=== PATIENT | male | born 1955 | race Caucasian/White ===

== ENCOUNTER 2020-03-11 20:25 | Emergency (ER) | payer MEDICAID ==
[2020-03-11] MEDS ORDERED: ONDANSETRON HCL INJ/PF 4 MG/2 ML SDV IV ONE (22:04)
[2020-03-11] MEDS ORDERED: GLUCAGON,HUMAN RECOMB 1 MG INJ IV ONE (22:04)
[2020-03-11 22:40] LABS: ABSOLUTE LYMPHOCYTES (AUTO) 1.8 10^3/uL (0.5-4.7); ABSOLUTE MONOCYTES (AUTO) 1.3 10^3/uL (0.1-1.4); ABSOLUTE NEUT (AUTO) 10.2 10^3/uL (1.7-8.2); EOSINOPHILS % (AUTO) 0.1 % (0-6); HEMATOCRIT 41.9 % (37.9-51.0); HEMOGLOBIN 14.3 g/dL (13.5-17.0); LYMPHOCYTES % (AUTO) 13.3 % (13-45); MEAN CORPUSCULAR HEMOGLOBIN 29.7 pg (27.0-33.4); MEAN CORPUSCULAR HGB CONC 34.1 g/dL (32.0-36.0); MEAN CORPUSCULAR VOLUME 87 fl (80-97); MONOCYTES % (AUTO) 10.1 % (3-13); PLATELET COUNT 222 10^3/uL (150-450); RED BLOOD COUNT 4.81 10^6/uL (4.35-5.55); RED CELL DISTRIBUTION WIDTH 14.2 % (11.5-14.0); SEGMENTED NEUTROPHILS % (AUTO) 76.5 % (42-78); TOTAL CELLS COUNTED % (AUTO) 100 %; WHITE BLOOD COUNT 13.3 10^3/uL (4.0-10.5)
--- NOTE | 2020-03-11 22:51 | ER Document Report ---
ED General - General Chief Complaint: Other Stated Complaint: DIFFICULTY SWALLOW Time Seen by Provider: 03/11/20 21:06 TRAVEL OUTSIDE OF THE [place] IN LAST 30 DAYS: No - HPI Notes: 64-year-old male no significant medical history presents with feeling of steak stuck in his throat after eating dinner tonight. Patient feels pain where he feels food bolus. Has vomited every time he is attempted to take p.o. since dinner. No drooling, no shortness of breath, no cough, no other medical history - Related Data Allergies/Adverse Reactions: peanut [Peanut] Allergy (Verified 02/16/15 15:23) Past Medical History - General Information source: Patient - Social History Smoking Status: Never Smoker Frequency of alcohol use: None Drug Abuse: None Patient has homicidal ideation: No Review of Systems - Review of Systems Notes: REVIEW OF SYSTEMS: CONSTITUTIONAL : Denies fever, chills, or sweats. EENT: Denies recent cold/sinus symptoms, +throat pain CARDIOVASCULAR: Denies chest pain, ANA RESPIRATORY: Denies cough, denies shortness of breath. GASTROINTESTINAL: Denies abdominal pain, nausea/vomiting. GENITOURINARY: Denies difficulty urinating, painful urination. MUSCULOSKELETAL: Denies neck pain, back pain. SKIN: Denies rash or skin lesions. HEMATOLOGIC : Denies easy bruising or bleeding. LYMPHATIC: Denies swollen, enlarged glands. NEUROLOGICAL: Denies headache, denies change in gait. PSYCHIATRIC: Denies anxiety or stress or depression. Physical Exam - Vital signs Vitals: Temp Pulse Resp BP Pulse Ox 98.7 F 100 17 157/96 H 100 03/11/20 20:30 03/11/20 20:30 03/11/20 20:30 03/11/20 20:30 03/11/20 20:30 - Notes Notes: PHYSICAL EXAMINATION: GENERAL: Well-appearing, well-nourished, uncomfortable appearing middle-aged man walking around ED evaluation room with emesis bag in no acute distress. HEAD: Atraumatic, normocephalic. EYES: Pupils equal round and appropriate constriction, sclera anicteric, conjunctiva are normal. ENT: nares patent, moist mucous membranes. NECK: Normal range of motion, supple without lymphadenopathy LUNGS: Breath sounds clear to auscultation bilaterally and equal. No wheezes rales or rhonchi. HEART: Regular rate and rhythm without murmurs ABDOMEN: Soft, nontender, no guarding, no masses, no CVAT EXTREMITIES: Normal range of motion, no pitting or edema. No cyanosis. NEUROLOGICAL: Awake, alert, conversing appropriately, moves all extremities spontaneously. PSYCH: Normal mood, normal affect. SKIN: Warm, Dry, normal turgor, no rashes or lesions noted. Course - Re-evaluation Re-evalutation: 03/11/20 22:50 Presentation consistent with acute esophageal impaction. No signs of airway involvement or impending airway obstruction. Patient otherwise well-appearing. Patient completely unable to tolerate p.o. with numerous episodes of emesis since impaction shortly before ED arrival. Will attempt carbonated drink and axial loading force to mobilize bolus, will obtain basic labs and administer glucagon if ineffective, will consult surgery if unable to resolve in ED. Patient otherwise stable pending further treatment. 03/11/20 23:27 No success in relieving esophageal bolus in ED. Consulted Dr. Adams who plans to perform endoscopy in ED, says patient can be admitted to his service in the meantime. Patient remains stable without any significant change in clinical status. 03/11/20 23:30 Ordered labs in order to facilitate patient possibly having surgical procedure. Mild leukocytosis consistent with acute stress response to patient's current symptoms, no signs of infection, no need for further ED investigation of this finding. Patient has mild hypertension in ED likely secondary to acute discomfort, informed patient of this incidental finding and instructed him to follow it up with primary doctor. 03/12/20 02:23 Food bolus was removed by surgeon in ED successfully without complication. Patient currently without any symptoms of moderate sedation, says he feels back to his baseline, does not have any pain, able to tolerate p.o. in ED without vomiting after procedure, patient ready for discharge. Patient informed of incidental findings of borderline hypertension and mild LFT abnormalities and instructed to follow these up with his primary care doctor. Patient given return precautions which she demonstrated understanding of. - Vital Signs Vital signs: Temp Pulse Resp BP Pulse Ox 97.8 F 85 29 H 132/90 H 98 03/12/20 00:30 03/12/20 01:40 03/12/20 02:05 03/12/20 02:04 03/12/20 02:04 - Laboratory Result Diagrams: 03/11/20 22:19 03/11/20 23:03 Laboratory results interpreted by me: 03/11/20 03/11/20 22:19 23:03 WBC 13.3 H RDW 14.2 H Absolute Neuts (auto) 10.2 H Potassium 3.4 L AST 63 H ALT 175 H Discharge - Discharge Clinical Impression: Esophageal obstruction due to food impaction Condition: Good Disposition: HOME, SELF-CARE Additional Instructions: Esophageal Food Impaction Meat and poorly chewed food may stick in the lower esophagus, blocking it. We can relax the esophagus with medication, allowing the food to move into the stomach. Sometimes "carbonating" the water in the esophagus lifts food particles out of the obstruction and pushes the remaining food down. If these methods don't work, a tube is put down the esophagus to clear the blockage. Food "sticking" is called dysphagia. It's caused by a narrowing in the esophagus. Most commonly, it's due to chronic effects of esophagitis (an inflammation of the lower esophagus due to stomach acid, causing symptoms such as chest pain or heartburn). A hiatal hernia is often present. If the dysphagia has just begun, further testing to evaluate the cause of the obstruction will be necessary. If this is a recurrent problem, a procedure to dilate the esophagus may be necessary. Most commonly, the problem will resolve once swelling in the esophagus stops. Usual treatment is antacids or acid-suppressing medication. Membrane- coating medicine (such as Carafate), or medicine to keep acid out of the esophagus (such as Reglan) may be helpful for some patients. Call the doctor or return for re-evaluation if you develop chest pain, fever, shortness of breath, or inability to swallow fluids. Return to ED immediately if you develop weakness, dizziness, fainting, chest pain, fever, constipation or uncontrolled vomiting, or any other worsening or alarming symptoms. Follow-up with your primary doctor within 1 week and discuss your blood pressure and abnormal liver function tests with her or him.
[2020-03-11] MEDS ORDERED: NORMAL SALINE 1000 ML 1,000 ML IV ONE (22:52)
[2020-03-11 23:26] LABS: INTERNATIONAL RATION (INR) 1.02; PROTHROMBIN TIME 13.4 SEC (11.4-15.4)
[2020-03-11 23:27] LABS: PARTIAL THROMBOPLASTIN TIME 24.8 SEC (23.5-35.8)
[2020-03-11 23:40] LABS: ALBUMIN 3.8 g/dL (3.5-5.0); ALKALINE PHOSPHATASE 63 U/L (38-126); ANION GAP 5 (5-19); ASPARTATE AMINO TRANSFERASE 63 U/L (17-59); BILIRUBIN,TOTAL 0.4 mg/dL (0.2-1.3); BLOOD UREA NITROGEN 12 mg/dL (7-20); CALCIUM 9.3 mg/dL (8.4-10.2); CARBON DIOXIDE 30 mmol/L (22-30); CHLORIDE 102 mmol/L (98-107); GLUCOSE 107 mg/dL (75-110); POTASSIUM 3.4 mmol/L (3.6-5.0); TOTAL PROTEIN 6.8 g/dL (6.3-8.2)
--- NOTE | 2020-03-11 23:52 | PDOC H&P ---
History of Present Illness Admission Date/PCP: 03/11/20 Patient complains of: food stuct in throat History of Present Illness: MIKA PRAKASH JR is a 64 year old male 64-year-old male no significant medical history presents with feeling of steak stuck in his throat after eating dinner tonight. Patient feels pain where he feels food bolus. Has vomited every time he is attempted to take p.o. since dinner. No drooling, no shortness of breath, no cough, no other medical history Past Medical History Skin History Note: exema Social History Smoking Status: Never Smoker Family History Parental Family History Reviewed: No Children Family History Reviewed: NA Sibling(s) Family History Reviewed.: NA Medication/Allergy Home Medications: No Home Medications 02/16/15 Allergies/Adverse Reactions: peanut [Peanut] Allergy (Verified 02/16/15 15:23) Physical Exam Vital Signs: Temp Pulse Resp BP Pulse Ox 98.7 F 100 17 157/96 H 100 03/11/20 20:39 03/11/20 20:30 03/11/20 20:30 03/11/20 20:30 03/11/20 20:30 Intake & Output 03/10/20 03/11/20 03/12/20 06:59 06:59 06:59 Weight 74.6 kg General appearance: PRESENT: mild distress Head exam: PRESENT: normocephalic Eye exam: PRESENT: EOMI Ear exam: PRESENT: normal external ear exam Mouth exam: PRESENT: moist Teeth exam: PRESENT: edentulous Neck exam: PRESENT: full ROM Respiratory exam: PRESENT: clear to auscultation naa Cardiovascular exam: PRESENT: RRR Pulses: PRESENT: normal radial pulses, normal femoral pulses, +2 pedal pulses bilateral Vascular exam: PRESENT: normal capillary refill Breast: PRESENT: Normal GI/Abdominal exam: PRESENT: soft Rectal exam: PRESENT: deferred Extremities exam: PRESENT: full ROM Musculoskeletal exam: PRESENT: full ROM Neurological exam: PRESENT: alert, awake, oriented to person, oriented to place Psychiatric exam: PRESENT: appropriate affect Skin exam: PRESENT: dry Results Laboratory Results: 03/11/20 22:19 03/11/20 23:03 03/11/20 03/11/20 03/11/20 22:19 22:19 23:03 WBC 13.3 H RBC 4.81 Hgb 14.3 Hct 41.9 MCV 87 MCH 29.7 MCHC 34.1 RDW 14.2 H Plt Count 222 Seg Neutrophils % 76.5 Sodium Cancelled 137.2 Potassium Cancelled 3.4 L Chloride Cancelled 102 Carbon Dioxide Cancelled 30 Anion Gap Cancelled 5 BUN Cancelled 12 Creatinine Cancelled 0.86 Est GFR ( Amer) Cancelled > 60 Est GFR (Non-Af Amer) Cancelled Glucose Cancelled 107 Calcium Cancelled 9.3 Total Bilirubin Cancelled 0.4 AST Cancelled 63 H Alkaline Phosphatase Cancelled 63 Total Protein Cancelled 6.8 Albumin Cancelled 3.8 Assessment & Plan - Plan Summary Plan Summary: food bolus esophagus, 1st time plan on upper endoscopy and removal risk of perforation, , bleeding has been discussed.
[2020-03-12] MEDS ORDERED: NALOXONE HCL INJ/PF 0.4 MG/1 ML SDV ONE (00:19)
[2020-03-12] MEDS ORDERED: ONDANSETRON HCL INJ/PF 4 MG/2 ML SDV ONE (00:19)
[2020-03-12] MEDS ORDERED: DIPHENHYDRAMINE HCL 50 MG/ML VIAL ONE (00:19)
[2020-03-12] MEDS ORDERED: EPINEPHRINE INJ 1 MG/10 ML DISP.SYRIN ONE (00:20)
[2020-03-12] MEDS ORDERED: FLUMAZENIL INJ 0.5 MG/5 ML VIAL ONE (00:20)
[2020-03-12] MEDS ORDERED: GLUCAGON,HUMAN RECOMB 1 MG INJ ONE (00:20)
[2020-03-12] MEDS ORDERED: MIDAZOLAM 2 MG/2 ML INJ ONE (00:20)
[2020-03-12] MEDS ORDERED: BENZOCAINE 20% AEROSOL SPRAY 60 GM ONE (00:34)
[2020-03-12] MEDS: FENTANYL CITRATE INJ/PF 100 MCG/2 ML AMPUL ONE ×2 (00:55→01:00)
--- NOTE | 2020-03-12 01:16 | Operative Report ---
Nonrecallable Operative Report DATE OF SURGERY: 03/12/20 PREOPERATIVE DIAGNOSIS: esophageal food impaction POSTOPERATIVE DIAGNOSIS: esophageal food impaction OPERATION: Topical gastroduodenoscopy with removal of esophageal food impaction SURGEON: ISIDRO LYNCH ANESTHESIA: Moderate Sedation TISSUE REMOVED OR ALTERED: None COMPLICATIONS: None ESTIMATED BLOOD LOSS: 0 INTRAOPERATIVE FINDINGS: Esophageal foreign body food impaction at 25 cm PROCEDURE: After appropriate timeout and site verification the procedure commenced. The patient was given IV sedation using fentanyl and Versed. The Olympus gastroscope was passed into the posterior pharynx and easily traversed the upper esophageal sphincters in the proximal esophagus. The scope was slowly advanced to we reached approximately 25 cm where we noted a esophageal food bolus. Using the scope we slowly advanced the food bolus into the stomach. Once the food bolus was in the stomach we continue with our observation of the stomach and duodenum. The scope was slowly advanced into the antrum and then the pylorus was identified. Pylorus was traversed into the duodenum. The duodenum was examined to the second portion of the duodenum. There was no obvious ulcers or duodenitis. As the scope was withdrawn the antrum was identified again and that appeared to be normal without any evidence of ulcerations. The duodenal bulb was also normal. The scope was then maneuvered so we could see the fundus and GE junction and there was a small hiatal hernia. As the scope was then slowly withdrawn distal esophagitis was noted. The scope was then slowly withdrawn again we examined the distal esophagus the food bolus had been removed and then the scope was finally withdrawn. Findings distal esophagitis Food bolus at 25 cm advanced into the stomach.
[2020-03-12 02:18] VITALS: BP 132/90
== END 2020-03-12 02:36 | disposition home or self-care (01) ==
LOC: ER 20:25
DX: T18.128A Food in esophagus causing other injury, initial encounter (principal); R13.10 Dysphagia, unspecified; X58.XXXA Exposure to other specified factors, initial encounter; Z91.010 Allergy to peanuts
CPT/HCPCS: 99284; 96361; 96374; 96375; 86900; 86901; 36415; 86850; 85025; 85610; 85730; 80053; 43247; J2250; J3490; J3010; J1610; J2405; J7030; J0171; J1200; J2310